=== PATIENT | female | born 2000 | race Two or more races ===

== ENCOUNTER 2019-07-28 15:31 | Emergency (ER) | payer OTHER ==
[~2019-07-28] VITALS: Ht 165.1 cm; Wt 61.2 kg
[2019-07-28 15:39] VITALS: BP 113/75
--- NOTE | 2019-07-28 15:47 | NUR ---
PT SIGNED WAIVER
== END 2019-07-28 16:40 | disposition home or self-care (01) ==
LOC: ER 15:35
DX: S93.492A Sprain of other ligament of left ankle, initial encounter (principal); X50.1XXA Overexertion from prolonged static or awkward postures, initial encounter; Y93.89 Activity, other specified; Y92.89 Other specified places as the place of occurrence of the external cause; Y99.8 Other external cause status
CPT/HCPCS: 73610-TC